=== PATIENT | female | born 1950 | race Caucasian/White ===

== ENCOUNTER 2018-07-29 08:04 | Observation (INO) ==
[2018-07-29] MEDS ORDERED: ALBUTEROL SULFATE 2.5 MG/0.5 ML VIAL.NEB IH ONE ×2 (08:26→10:13)
[2018-07-29 08:45] LABS: Hematocrit 40.2 % (37.0-47.0); Hemoglobin 13.4 gm/dL (12.5-16.0); Mean Cell Volume 89.3 fl (78-100); Mean Corpuscular Hemoglobin 29.8 pg (27-31); Mean Corpuscular Hgb Conc 33.3 g/dl (32-36); Mean Platelet Volume 8.9 fl (8-12.5); Neutrophil # 8.5 K/mm3 (1.3-6.0); Neutrophil % 86.3 % (42-75.0); Platelet Count 209 K/mm3 (150-450); Red Cell Distribution Width 12.8 % (11.5-14.0); White Blood Count 9.8 K/mm3 (4.0-10.5)
[2018-07-29 09:04] LABS: Troponin I Less than 0.017 ng/mL (0.00-0.10)
[2018-07-29 09:05] LABS: ALT 68 U/L (19-67); AST 54 U/L (0-48); Albumin * 3.9 gm/dl (3.4-5.0); Alkaline Phosphatase * 115 U/L (50-170); Anion Gap 14.5 mmol/L (6.8-13.8); BNP * 429 pg/mL (5-325); BUN/Creatinine Ratio 11.4 (9.0-21.6); Blood Urea Nitrogen 14 mg/dL (3-23); Ca. Corrected For Albumin 8.9 mg/dL (8.4-10.2); Calcium * 9.1 mg/dL (7.9-10.9); Carbon Dioxide 25.9 mmol/L (24-32.6); Chloride 95 mmol/L (97-106); Glucose * 194 mg/dL (70-110); Potassium 3.4 mmol/L (3.4-4.6); Sodium 132 mmol/L (132-142); Total Protein 7.4 gm/dL (6.2-8.2)
[2018-07-29] MEDS ORDERED: ACETAMINOPHEN 325 MG TABLET PO ONE (09:17)
[2018-07-29] MEDS ORDERED: NORMAL SALINE 500 ML IV ONE (09:52)
[2018-07-29 10:20] LABS: Urine Bilirubin Negative (NEGATIVE); Urine Ketone Negative (NEGATIVE); Urine Nitrite Negative (NEGATIVE); Urine Protein Negative (NEGATIVE); Urine Urobilinogen Normal (NORMAL); Urine pH 5.5 pH (5.0-7.0)
[2018-07-29 10:28] LABS: Urine Appearance Clear (CLEAR); Urine Blood 10 /ul (NEGATIVE); Urine Color Yellow
[2018-07-29 10:29] LABS: Urine Bacteria TRACE; Urine RBC None Seen /hpf (0-5); Urine WBC TRACE /hpf (0-5)
--- NOTE | 2018-07-29 11:06 | ERNOTE ---
Date of Service: 07/29/18 Time Seen by Provider: 07/29/18 08:26 Stated Complaint: uri,wheezing,chills Presenting Symptoms:: cough, runny nose, fever Source: patient, family Exam Limitations: no limitations Immunizations: IMMUNIZATION HX Immunizations Up to Date Yes History of Influenza Vaccine Yes Hx Pneumococcal Vaccination Yes Allergies/Adverse Reactions: Allergies contact metal agent Adverse Reaction (Verified 07/09/18 14:40) Hives Penicillins Adverse Reaction (Verified 07/09/18 14:40) Hives Home Medications: HOME MEDICATIONS hydrocodone 5 mg-acetaminophen 325 mg tablet 1 tab PO Q8H PRN 07/09/18 [Last Taken Unknown] metformin 500 mg tablet 500 mg PO BID 07/09/18 [Last Taken Unknown] triamterene 37.5 mg-hydrochlorothiazide 25 mg capsule 1 cap PO DAILY 07/09/18 [Last Taken Unknown] bisoprolol fumarate 5 mg tablet 5 mg PO DAILY 07/16/18 [Last Taken Unknown] clindamycin HCl 150 mg capsule 150 mg PO QID 07/16/18 [Last Taken Unknown] cyclobenzaprine 10 mg tablet 10 mg PO BID PRN 07/16/18 [Last Taken Unknown] hyoscyamine 0.125 mg sublingual tablet 0.125 mg PO DAILY PRN 07/16/18 [Last Taken Unknown] metronidazole 500 mg tablet 500 mg PO QID 07/16/18 [Last Taken Unknown] montelukast 10 mg tablet 10 mg PO DAILY 07/16/18 [Last Taken Unknown] mupirocin 2 % topical ointment 1 applic TP BID 07/16/18 [Last Taken Unknown] potassium chloride ER 10 mEq capsule,extended release 10 meq PO DAILY PRN 07/16/18 [Last Taken Unknown] triamterene 37.5 mg-hydrochlorothiazide 25 mg capsule 1 cap PO DAILY 07/16/18 [Last Taken Unknown] albuterol sulfate HFA 90 mcg/actuation aerosol inhaler 2 inh IH Q6H PRN 30 Days #6.7 g 07/28/18 [Last Taken Unknown] inhalational spacing device See Dose Instructions .ROUTE .MEDSUPPLY #1 ea 07/28/18 [Last Taken Unknown] - History of Present Ilness Narrative: patient has been sick for last severaldays with c/o fever chills for several days, past hx of pneumonia Timing: constant, getting worse Severity: moderate Frequency/Possible Cause: Reports: occasional episodes Modifying Factors - Improves: Reports: nothing Modifying Factors - Worsens: Reports: coughing, lying down Associated Symptoms: Reports: denies symptoms, cough, shortness of breath Review of Systems - Review of Systems Constitutional: Present: See HPI EYE: Present: no symptoms reported ENT: Present: no symptoms reported Respiratory: Present: See HPI, shortness of breath, cough, orthopnea, wheezing Cardiology: Present: no symptoms reported Gastrointestinal/Abdominal: Present: no symptoms reported Genitourinary: Present: no symptoms reported Musculoskeletal: Present: no symptoms reported Skin: Present: no symptoms reported Neurological: Present: no symptoms reported Endocrine: Present: no symptoms reported Hematologic/Lymphatic: Present: no symptoms reported Psych: Present: no symptoms reported Medical History (Updated 07/10/18 @ 14:59 by Araceli Mccord DPM) Restless leg Ruptured disc, thoracic Surgical History: Surgical History (Updated 07/09/18 @ 15:07 by Antoinette To CMA) History of back surgery Onset Date: Unknown Hx of cholecystectomy Onset Date: Unknown Family History: Family History (Updated 07/09/18 @ 14:48 by Atnoinette To CMA) Other CVA (cerebral vascular accident) Hypertension Parkinson disease Social History: Preferred Language Thai Smoking Status Never smoker Alcohol Use none Drug Use none (Last Updated 07/16/18 @ 16:06 by Antoinette To CMA) No Social History Section defined Physical Exam - Physical Exam General Appearance: Present: moderate distress, anxious Head Exam: Present: normal inspection, no evidence of injury Eye Exam: Normal inspection: bilateral, PERRL: bilateral, EOMI: bilateral Ears, Nose, Throat: Present: sinus pain/drainage, normal pharynx, pharyngeal erythema Neck: Present: normal inspection, nontender Respiratory: Present: respiratory distress, crackles, rales, rhonchi, wheezing Cardiovascular/Chest: Present: regular rate, rhythm, no murmur, normal peripheral pulses Gastrointestinal/Abdominal: Present: normal bowel sounds, nontender, nondistended, soft, no organomegaly Back Exam: Present: normal inspection, normal range of motion, no CVA tenderness, no vertebral tenderness Extremity Exam: Present: normal inspection, non-tender, normal range of motion, no edema Neurological Exam: Present: alert, oriented, normal mood/affect, no motor/sensory deficits DTR: N=norm/NB=norm/brisk/A=abs/DD=dull/dimin/HC=hyperactive: Bicep (R): Normal, Bicep (L): Normal, Tricep (R): Normal, Tricep (L): Normal, Knee (R): Normal, Knee (L): Normal, Ankle (R): Normal, Ankle (L): Normal Skin Exam: Present: normal color, warm/dry Progress - Date and Time Seen: Date and Time: 07/29/18 11:02 patient somwhat improved, discussed labs and x-rays with patient, case discussed with dr rich to admit to observation - Results and Orders Patient's Lab Results:: I have reviewed the patient's lab results. - Vital Signs Patient's Vital Signs:: I have reviewed the patient's vital signs. Vital Signs: Vital Signs 07/29/18 08:20 07/29/18 08:38 07/29/18 08:48 Temperature 39.1 C H Pulse Rate 109 H 107 H 102 H Respiratory Rate 25 H 22 H 21 H Blood Pressure 148/69 O2 Sat by Pulse Oximetry 92 L 91 L 07/29/18 09:45 07/29/18 10:19 07/29/18 10:29 Temperature 38.3 C H Pulse Rate 101 H 105 H 106 H Respiratory Rate 23 H 25 H 21 H Blood Pressure 123/73 129/58 O2 Sat by Pulse Oximetry 92 L 90 L 92 L - EKG EKG #1 EKG: supraventricular tachycardia - X-Ray X-Ray #1 X-Ray: chest Interpretation: Discd w/ radiologist - linear density right sub bronchial region r/o subtle pneumonia - Progress/Reassessment Chief Complaint: Upper Respiratory Symptoms Progress:: Unchanged - Transfer of Care Expected Disposition: Discharge Plan - Plan Plan: to admit to observation Departure Clinical Impression: Pneumonia - Departure Disposition: Still a patient Condition: Serious Instructions: Community-Acquired Pneumonia, Adult, [id number]
[2018-07-29] MEDS: NORMAL SALINE 1,000 ML IV PRN ×2 (12:00→21:03)
[2018-07-29] MEDS: CLINDAMYCIN PHOSPHATE 600 MG in DEXTROSE 5 % IN WATER 100 ML IV SCH ×4 (12:09→19:36)
--- NOTE | 2018-07-29 12:26 | HP ---
Chief Complaint - Chief Complaint Date of Service: 07/29/18 Time of Service: 10:25 Chief Complaint: cough, fever History of Present Illness: 68-year-old female history of Sjogren's disease presented to the ER today with 3 days worsening cough, shortness of breath, fever. She was found to have lactic acid of 2.8. White count was normal though she had a left shift to 86%. Chest x-ray obtained showed possible right lower lobe infiltrate there was subtle. Patient's cough has been nonproductive but she feels like it is because she has been so dry recently with her Sjogren's that she has been able to cough up anything moist. She endorses some nasal drainage as well as postnasal drip. Vital signs showed her to be tachycardic and febrile. She was started on Cleocin, given a bolus of IV fluid, and placed under observation. Flu negative. Medical History (Updated 07/29/18 @ 13:27 by Nanette Oconnor RN) Diabetes Sjogrens syndrome Restless leg Ruptured disc, thoracic Surgical History: Surgical History (Updated 07/29/18 @ 12:26 by Manohar Mukherjee DO) History of back surgery Onset Date: Unknown Hx of cholecystectomy Onset Date: Unknown Family History: Family History (Updated 07/09/18 @ 14:48 by Antoinette To CMA) Other CVA (cerebral vascular accident) Hypertension Parkinson disease Social History: Preferred Language Yakut Smoking Status Never smoker Alcohol Use none Drug Use none (Last Updated 07/16/18 @ 16:06 by Antoinette To CMA) No Social History Section defined Review Of Systems (GEN) - Review of Systems Generalized/Overall Review: Present: Weakness, Chills, Fever, Fatigue EENTM: Present: Nose Congestion. Absent: Ear Pain, Nose Pain Respiratory: Present: Cough, Shortness of Breath, Wheezing Cardiac: Absent: Chest Pain, Edema Abdominal: Absent: Nausea, Vomiting Genitourinary: Present: No Symptoms Reported Musculoskeletal: Present: No Symptoms Reported Neurological: Present: No Symptoms Reported Skin: Present: Change in Color - Flushed Immunizations: IMMUNIZATION HX Immunizations Up to Date Yes History of Influenza Vaccine Yes Hx Pneumococcal Vaccination Yes Allergies/Adverse Reactions: Allergies Allergy/AdvReac Type Severity Reaction Status Date / Time Penicillins AdvReac Severe Anaphylaxis Verified 07/29/18 11:41 contact metal agent AdvReac Mild Hives Verified 07/29/18 11:41 Home Medications: HOME MEDICATIONS hydrocodone 5 mg-acetaminophen 325 mg tablet 1 tab PO HS 07/09/18 [Last Taken Unknown] metformin 500 mg tablet 500 mg PO BID 07/09/18 [Last Taken Unknown] bisoprolol fumarate 5 mg tablet 10 mg PO DAILY 07/16/18 [Last Taken Unknown] cyclobenzaprine 10 mg tablet 10 mg PO HS 07/16/18 [Last Taken Unknown] hyoscyamine 0.125 mg sublingual tablet 0.125 mg PO QID PRN 07/16/18 [Last Taken Unknown] montelukast 10 mg tablet 10 mg PO DAILY 07/16/18 [Last Taken Unknown] mupirocin 2 % topical ointment 1 applic TP BID PRN 07/16/18 [Last Taken Unknown] triamterene 37.5 mg-hydrochlorothiazide 25 mg capsule 1 cap PO DAILY 07/16/18 [Last Taken Unknown] albuterol sulfate HFA 90 mcg/actuation aerosol inhaler 2 inh IH Q6H PRN 30 Days #6.7 g 07/28/18 [Last Taken Unknown] inhalational spacing device See Dose Instructions .ROUTE .MEDSUPPLY #1 ea 07/28/18 [Last Taken Unknown] Ciprofloxacin HCl [Cipro] 500 mg PO BID 07/29/18 [Last Taken Unknown] Diclofenac Sodium [Voltaren] 50 mg PO DAILY 07/29/18 [Last Taken Unknown] Lactase [Lactaid] 3,000 unit PO TID PRN 07/29/18 [Last Taken Unknown] Potassium Chloride 10 meq PO DAILY 07/29/18 [Last Taken Unknown] Ranitidine HCl [Zantac 75] 75 mg PO BID PRN 07/29/18 [Last Taken Unknown] Simethicone [Mylicon Chewable Tablets] 80 mg PO TID PRN 07/29/18 [Last Taken Unknown] diphenhydrAMINE HCL [Benadryl] 25 mg PO Q6H PRN 07/29/18 [Last Taken Unknown] guaiFENesin [Cough Syrup] 200 mg PO PRN PRN 07/29/18 [Last Taken Unknown] Exam - Exam Vital Signs: Vital Signs - Last Taken Temp 37.5 C 07/29/18 11:45 Pulse 89 07/29/18 11:45 Resp 20 07/29/18 11:45 BP 121/63 07/29/18 11:45 Pulse Ox 90 L 07/29/18 11:45 Constitutional: Present: Alert, Oriented x3, Mild distress, Overweight ENT Exam: Present: nasal drainage - Clear, pharyngeal erythema. Absent: tonsillar exudate Eye Exam: bilateral eye: normal inspection Neck: Present: non-tender, supple. Absent: lymphadenopathy (R), lymphadenopathy (L) Back Exam: Present: no CVA tenderness Respiratory: Present: no respiratory distress, rhonchi - Bilateral bases. Absent: crackles Cardiovascular/Chest: Present: regular rate, rhythm, edema - Trace Skin Exam: Present: warm/dry, no cyanosis Lymphatic: Present: no adenopathy Appearance: Present: appropriate appearance, appropriate insight, neat Eye contact: Present: cooperative, good eye contact, normal speech Thoughts: Present: normal thought pattern, normal mood /affect Diagnostic Studies: Abnormal Lab Results 07/29/18 07/29/18 07/29/18 Range/Units 08:35 08:35 08:35 Immature Gran # (Auto) 0.04 H (0.000-0.0310) K/mm3 Neutrophils % 86.3 H (42-75.0) % Lymphocytes % 8.1 L (20-51) % Neutrophils # 8.5 H (1.3-6.0) K/mm3 Lymphocytes # 0.80 L (1.5-3.5) k/mm3 Chloride 95 L (97-106) mmol/L Anion Gap 14.5 H (6.8-13.8) mmol/L Est GFR (Non-Af Amer) 46 L (60-130) mL/min Random Glucose 194 H (70-110) mg/dL Lactic Acid, Venous (0.4-2.0) mmol/L AST 54 H (0-48) U/L ALT 68 H (19-67) U/L C-Reactive Prot, Quant 8.2 H (0.0-0.9) mg/dL B-Natriuretic Peptide 429 H (5-325) pg/mL Urine Blood (NEGATIVE) /ul Urine WBC (0-5) /hpf Ur Epithelial Cells (0-5) /hpf 07/29/18 07/29/18 Range/Units 08:35 10:14 Immature Gran # (Auto) (0.000-0.0310) K/mm3 Neutrophils % (42-75.0) % Lymphocytes % (20-51) % Neutrophils # (1.3-6.0) K/mm3 Lymphocytes # (1.5-3.5) k/mm3 Chloride (97-106) mmol/L Anion Gap (6.8-13.8) mmol/L Est GFR (Non-Af Amer) (60-130) mL/min Random Glucose (70-110) mg/dL Lactic Acid, Venous 2.8 H* (0.4-2.0) mmol/L AST (0-48) U/L ALT (19-67) U/L C-Reactive Prot, Quant (0.0-0.9) mg/dL B-Natriuretic Peptide (5-325) pg/mL Urine Blood 10 H (NEGATIVE) /ul Urine WBC Trace H (0-5) /hpf Ur Epithelial Cells 10-25 H (0-5) /hpf Laboratory Results WBC 9.8 K/mm3 (4.0-10.5) 07/29/18 08:35 RBC 4.50 M/mm3 (4.2-5.4) 07/29/18 08:35 Hgb 13.4 gm/dL (12.5-16.0) 07/29/18 08:35 Hct 40.2 % (37.0-47.0) 07/29/18 08:35 MCV 89.3 fl (78-100) 07/29/18 08:35 MCH 29.8 pg (27-31) 07/29/18 08:35 MCHC 33.3 g/dl (32-36) 07/29/18 08:35 RDW 12.8 % (11.5-14.0) 07/29/18 08:35 Plt Count 209 K/mm3 (150-450) 07/29/18 08:35 MPV 8.9 fl (8-12.5) 07/29/18 08:35 Immature Gran % (Auto) 0.40 % (0.001-0.429) 07/29/18 08:35 Immature Gran # (Auto) 0.04 K/mm3 (0.000-0.0310) H 07/29/18 08:35 86.3 % (42-75.0) H 07/29/18 08:35 8.1 % (20-51) L 07/29/18 08:35 4.8 % (0.0-9) 07/29/18 08:35 0.0 % (0.0-3.0) 07/29/18 08:35 0.4 % (0.0-1.0) 07/29/18 08:35 Nucleated RBC % 0.0 k/mm3 (0-1) 07/29/18 08:35 8.5 K/mm3 (1.3-6.0) H 07/29/18 08:35 0.80 k/mm3 (1.5-3.5) L 07/29/18 08:35 0.5 k/mm3 (0.0-1.0) 07/29/18 08:35 0.0 k/mm3 (0.0-0.7) 07/29/18 08:35 Absolute Basophils 0.0 k/mm3 (0.0-0.1) 07/29/18 08:35 Sodium 132 mmol/L (132-142) 07/29/18 08:35 134 mmol/L (130-142) 07/29/18 08:35 Potassium 3.4 mmol/L (3.4-4.6) 07/29/18 08:35 Chloride 95 mmol/L (97-106) L 07/29/18 08:35 Carbon Dioxide 25.9 mmol/L (24-32.6) 07/29/18 08:35 14.5 mmol/L (6.8-13.8) H 07/29/18 08:35 BUN 14 mg/dL (3-23) 07/29/18 08:35 1.23 mg/dL (0.4-1.4) 07/29/18 08:35 Est GFR (Non-Af Amer) 46 mL/min (60-130) L 07/29/18 08:35 11.4 (9.0-21.6) 07/29/18 08:35 194 mg/dL (70-110) H 07/29/18 08:35 2.8 mmol/L (0.4-2.0) H* 07/29/18 08:35 Calcium 9.1 mg/dL (7.9-10.9) 07/29/18 08:35 Calcium Adj for Albumin 8.9 mg/dL (8.4-10.2) 07/29/18 08:35 1.0 mg/dL (0.0-1.1) 07/29/18 08:35 AST 54 U/L (0-48) H 07/29/18 08:35 ALT 68 U/L (19-67) H 07/29/18 08:35 115 U/L (50-170) 07/29/18 08:35 Less than 0.017 ng/mL (0.00-0.10) 07/29/18 08:35 C-Reactive Prot, Quant 8.2 mg/dL (0.0-0.9) H 07/29/18 08:35 B-Natriuretic Peptide 429 pg/mL (5-325) H 07/29/18 08:35 7.4 gm/dL (6.2-8.2) 07/29/18 08:35 3.9 gm/dl (3.4-5.0) 07/29/18 08:35 0.36 ng/mL (0.05-0.50) 07/29/18 08:35 Yellow 07/29/18 10:14 Clear (CLEAR) 07/29/18 10:14 5.5 pH (5.0-7.0) 07/29/18 10:14 Ur Specific [place] 1.010 SP.GR. (1.005-1.010) 07/29/18 10:14 Negative mg/dL (NEGATIVE) 07/29/18 10:14 Negative mg/dL (NEGATIVE) 07/29/18 10:14 Negative mg/dL (NEGATIVE) 07/29/18 10:14 10 /ul (NEGATIVE) H 07/29/18 10:14 Negative (NEGATIVE) 07/29/18 10:14 Negative mg/dl (NEGATIVE) 07/29/18 10:14 Normal EU/dl (NORMAL) 07/29/18 10:14 Ur Leukocyte Esterase Negative /ul (NEGATIVE) 07/29/18 10:14 None seen /hpf (0-5) 07/29/18 10:14 Trace /hpf (0-5) H 07/29/18 10:14 Ur Epithelial Cells 10-25 /hpf (0-5) H 07/29/18 10:14 Trace (NONE) 07/29/18 10:14 No culture indicated 07/29/18 10:14 Influenza Type A Ag Negative (NEGATIVE) 07/29/18 10:03 Influenza Type B Ag Negative (NEGATIVE) 07/29/18 10:03 Assessment/Plan - Narrative Narrative: Patient placed into observation and transferred over to the floor. She will start on clindamycin for possible pneumonia. She allergic to penicillin and cephalosporins. Lactic acid was repeated and returned to be within normal limits. She is currently on normal saline at 125 an hour. Vital signs are stable, blood pressure well controlled. Her last temp was 39.5, Tylenol was ordered for this. Repeat CBC in the a.m. Patient is a non-insulin type II diabetic, currently on metformin. We will continue this medication and check your sugars before meals at bedtime. Restart her chronic medications. Patient placed on a consistent carb diet. No DVT prophylaxis needed as she will likely be here less than 24 hours. Nurse to call with any questions or concerns. - Assessment/Plan (1) Sjogren's disease Problem: Chronic Qualifiers: Sjogren's organ involvement: unspecified organ involvement Qualified Code(s): M35.00 - Sicca syndrome, unspecified (2) Pneumonia Problem: Suspected (3) Elevated lactic acid level Problem: Acute
[2018-07-29] MEDS: ALBUTEROL SULFATE 2.5 MG/0.5 ML VIAL.NEB IH PRN ×2 (14:01→20:46)
[2018-07-29] MEDS: ACETAMINOPHEN 500 MG TABLET PO PRN (17:34)
[2018-07-29] MEDS ORDERED: guaiFENesin 100 MG/5 ML BTL PO PRN (21:47)
[2018-07-29] MEDS ORDERED: SIMETHICONE 80 MG TAB.CHEW PO PRN (21:47)
[2018-07-29] MEDS ORDERED: diphenhydrAMINE HCL 25 MG CAPSULE PO PRN (21:47)
[2018-07-29] MEDS ORDERED: Hyoscyamine Sulfate 0.125 MG PO PRN (21:47)
[2018-07-29] MEDS ORDERED: FAMOTIDINE 20 MG TABLET PO PRN (22:00)
[2018-07-30] MEDS: ACETAMINOPHEN 500 MG TABLET PO PRN (02:14)
[2018-07-30] MEDS: CLINDAMYCIN PHOSPHATE 600 MG in DEXTROSE 5 % IN WATER 100 ML IV SCH ×4 (03:27→10:25)
[2018-07-30] MEDS: ALBUTEROL SULFATE 2.5 MG/0.5 ML VIAL.NEB IH PRN ×2 (03:38→09:46)
[2018-07-30 05:50] LABS: Hematocrit 40.2 % (37.0-47.0); Hemoglobin 12.6 gm/dL (12.5-16.0); Mean Cell Volume 96.6 fl (78-100); Mean Corpuscular Hemoglobin 30.3 pg (27-31); Mean Corpuscular Hgb Conc 31.3 g/dl (32-36); Mean Platelet Volume 9.4 fl (8-12.5); Neutrophil % 75.4 % (42-75.0); Platelet Count 176 K/mm3 (150-450); Red Blood Count 4.16 M/mm3 (4.2-5.4); Red Cell Distribution Width 13.4 % (11.5-14.0); White Blood Count 7.9 K/mm3 (4.0-10.5)
[2018-07-30] MEDS: NORMAL SALINE 1,000 ML IV PRN ×2 (06:49→15:41)
[2018-07-30] MEDS: metFORMIN HCL 500 MG TABLET PO SCH ×2 (08:04→17:47)
[2018-07-30] MEDS ORDERED: BISOPROLOL FUMARATE 5 MG TABLET PO SCH ×2 (09:00)
[2018-07-30] MEDS ORDERED: POTASSIUM CHLORIDE 10 MEQ TABLET.SA PO SCH (09:00)
[2018-07-30] MEDS ORDERED: TRIAMTERENE/HYDROCHLOROTHIAZID 1 CAP CAPSULE PO SCH (09:00)
[2018-07-30] MEDS ORDERED: DICLOFENAC SODIUM 50 MG TABLET.DR PO SCH (09:00)
[2018-07-30] MEDS ORDERED: MONTELUKAST SODIUM 10 MG TABLET PO SCH ×2 (09:00→21:00)
[2018-07-30] MEDS ORDERED: BENZOCAINE/MENTHOL 16 EACH BOX MM PRN (10:04)
[2018-07-30] MEDS ORDERED: predniSONE 20 MG TABLET PO ONE (11:13)
--- NOTE | 2018-07-30 16:39 | DS ---
(1) Sjogren's disease Problem: Chronic Qualifiers: Sjogren's organ involvement: unspecified organ involvement Qualified Code(s): M35.00 - Sicca syndrome, unspecified (2) Pneumonia Problem: Suspected (3) Elevated lactic acid level Problem: Resolved Description of Stay: 68-year-old female with history of Sjogren's disease presented to the hospital for cough and fever. Diagnosed with pneumonia, though there likely is a sinusitis aspect to her illness. She was started on clindamycin as she has an allergy to penicillins and cephalosporins. She had a normal white count with a left shift of 86.3 that trended downward to 75.4 on the day of discharge. Initial lactic acid was initially 2.8 that trended down to 1.6 after fluids were given. Overnight she felt better though her cough was pretty barky. She was afebrile today with stable vital signs. She was discharged home on oral clindamycin to be taken for the next 8 days as well as a 5-day steroid burst of prednisone. She is to follow-up with me in the clinic in 1 to 2 weeks. Procedures Performed: none Results and Findings: Pending Mircobiology Results 07/29/18 09:00 Blood Blood Culture - Preliminary NO GROWTH 24 HOURS 07/29/18 08:35 Blood Blood Culture - Preliminary NO GROWTH 24 HOURS Lab Pending Results 07/29/18 08:35: WBC 9.8, RBC 4.50, Hgb 13.4, Hct 40.2, MCV 89.3, MCH 29.8, MCHC 33.3, RDW 12.8, Plt Count 209, MPV 8.9, Immature Gran % (Auto) 0.40, Immature Gran # (Auto) 0.04 H, Neutrophils % 86.3 H, Lymphocytes % 8.1 L, Monocytes % 4.8, Eosinophils % 0.0, Basophils % 0.4, Nucleated RBC % 0.0, Neutrophils # 8.5 H, Lymphocytes # 0.80 L, Monocytes # 0.5, Eosinophils # 0.0, Absolute Basophils 0.0 07/29/18 08:35: Sodium 132, Plasma Sodium 134, Potassium 3.4, Chloride 95 L, Carbon Dioxide 25.9, Anion Gap 14.5 H, BUN 14, Creatinine 1.23, Est GFR (Non-Af Amer) 46 L, BUN/Creatinine Ratio 11.4, Random Glucose 194 H, Calcium 9.1, Calcium Adj for Albumin 8.9, Total Bilirubin 1.0, AST 54 H, ALT 68 H, Alkaline Phosphatase 115, Troponin I Less than 0.017, B-Natriuretic Peptide 429 H, Total Protein 7.4, Albumin 3.9 07/29/18 08:35: Procalcitonin 0.36 07/29/18 08:35: C-Reactive Prot, Quant 8.2 H 07/29/18 08:35: Lactic Acid, Venous 2.8 H* 07/29/18 10:03: Influenza Type A Ag Negative, Influenza Type B Ag Negative 07/29/18 10:14: Urine Color Yellow, Urine Appearance Clear, Urine pH 5.5, Ur Specific [place] 1.010, Urine Protein Negative, Urine Glucose (UA) Negative, Urine Ketones Negative, Urine Blood 10 H, Urine Nitrate Negative, Urine Bilirubin Negative, Urine Urobilinogen Normal, Ur Leukocyte Esterase Negative, Urine RBC None seen, Urine WBC Trace H, Ur Epithelial Cells 10-25 H, Urine Bacteria Trace, Urine Culture Comments No culture indicated 07/29/18 12:20: Lactic Acid, Venous 2.3 H* 07/29/18 18:20: Lactic Acid, Venous 1.6 07/30/18 05:25: WBC 7.9, RBC 4.16 L, Hgb 12.6, Hct 40.2, MCV 96.6, MCH 30.3, MCHC 31.3 L, RDW 13.4, Plt Count 176, MPV 9.4, Immature Gran % (Auto) 0.30, Immature Gran # (Auto) 0.02, Neutrophils % 75.4 H, Lymphocytes % 16.7 L, Monocytes % 7.0, Eosinophils % 0.1, Basophils % 0.5, Nucleated RBC % 0.0, Neutrophils # 6.0, Lymphocytes # 1.32 L, Monocytes # 0.6, Eosinophils # 0.0, Absolute Basophils 0.0 Discharge Location: Home Disposition: Home self-care Condition: Stable Discharge Activity: Activity as tolerated Discharge Diet: General/regular food Referrals: Manohar Mukherjee DO [Staff Physician] - One Week Prescriptions (Any new or edited meds): Clindamycin HCl [Cleocin HCl] 300 mg PO TID #24 cap predniSONE [Prednisone] 2 tab PO DAILY #10 tab Complete Home Medications List: Complete Home Medication List: hydrocodone 5 mg-acetaminophen 325 mg tablet 1 tab PO HS 07/09/18 metformin 500 mg tablet 500 mg PO BID 07/09/18 bisoprolol fumarate 5 mg tablet 10 mg PO DAILY 07/16/18 cyclobenzaprine 10 mg tablet 10 mg PO HS 07/16/18 hyoscyamine 0.125 mg sublingual tablet 0.125 mg PO QID PRN 07/16/18 montelukast 10 mg tablet 10 mg PO DAILY 07/16/18 mupirocin 2 % topical ointment 1 applic TP BID PRN 07/16/18 triamterene 37.5 mg-hydrochlorothiazide 25 mg capsule 1 cap PO DAILY 07/16/18 albuterol sulfate HFA 90 mcg/actuation aerosol inhaler 2 inh IH Q6H PRN 30 Days #6.7 g 07/28/18 inhalational spacing device See Dose Instructions .ROUTE .MEDSUPPLY #1 ea 07/28/18 Diclofenac Sodium [Voltaren] 50 mg PO DAILY 07/29/18 Lactase [Lactaid] 3,000 unit PO TID PRN 07/29/18 Potassium Chloride 10 meq PO DAILY 07/29/18 Ranitidine HCl [Zantac 75] 75 mg PO BID PRN 07/29/18 Simethicone [Mylicon Chewable Tablets] 80 mg PO TID PRN 07/29/18 diphenhydrAMINE HCL [Benadryl] 25 mg PO Q6H PRN 07/29/18 guaiFENesin [Cough Syrup] 200 mg PO PRN PRN 07/29/18 Acetaminophen [Tylenol] 1,000 mg PO Q8H PRN tablet 07/30/18 Albuterol Sulfate [Albuterol Sulfate 2.5 MG/0.5ML] 2.5 mg IH Q6H PRN vial.neb 07/30/18 Benzocaine/Menthol [Cepacol Sore Throat] 1 each MM PRN PRN box 07/30/18 Clindamycin HCl [Cleocin HCl] 300 mg PO TID #24 cap 07/30/18 predniSONE [Prednisone] 2 tab PO DAILY #10 tab 07/30/18
[2018-07-30 18:24] VITALS: BP 122/62
== END 2018-07-30 19:25 | disposition home or self-care (01) ==
LOC: ER 08:04 → MS 08:04
PROVIDERS: ADMIT Family Medicine; ATTEND Family Medicine
CPT/HCPCS: 36415; 71020; 71046; 80053; 81001; 83519; 83605; 83880; 84145; 84484; 85025; 86140; 87040; 87400; 87449; 93005; 94640; 94664; 94760; 96361; 96365; 96366; 99285; G0378